=== PATIENT | female | born 1935 | race Caucasian/White ===

== ENCOUNTER 2022-03-28 18:46 | Inpatient (IN) | payer MEDICARE, MEDICAID ==
[~2022-03-28] VITALS: Ht 149.9 cm; Wt 47.6 kg
[~2022-03-28 18:46] MED LIST: GLYBURIDE; INSULIN; METFORMIN
[2022-03-28] MEDS ORDERED: KETOROLAC 30MG/ML VIAL IV STA (23:54)
[2022-03-28] MEDS ORDERED: ACETAMINOPHEN 325MG TABLET PO STA (23:54)
[2022-03-29] MEDS ORDERED: VANCOMYCIN 1G PREMIX 200 ML IV ONE
[2022-03-29] MEDS ORDERED: PIPERACILLIN/TAZ 3.375G PREMIX 50 ML IV ONE
[2022-03-29 00:23] LABS: BASOPHILS % 1.1 % (0.0-2.0); EOSINOPHILS % 6.4 % (0.0-5.0); HEMATOCRIT. 34.1 % (36.0-48.0); HEMOGLOBIN. 11.1 g/dL (12.0-16.0); LYMPHOCYTES % 42.8 % (20.0-50.0); MEAN CORPUSCULAR HEMOGLOBIN 26.6 pg (28.0-32.0); MEAN CORPUSCULAR VOLUME 81.7 fL (81.0-99.0); MEAN PLATELET VOLUME 8.9 fl (7.4-10.4); MONOCYTES % 10.7 % (2.0-8.0); PLATELET 308 x1000/uL (130-400); RED BLOOD CELL COUNT 4.18 mill/uL (4.2-5.4); RED CELL DISTRIBUTION WIDTH 16.1 % (11.6-14.6)
[2022-03-29 00:28] LABS: CHLORIDE 104 mEq/L (98-107)
[2022-03-29 01:26] LABS: CLARITY URINE CLOUDY (CLEAR); COLOR URINE YELLOW (YELLOW); KETONES URINE TRACE (NEGATIVE); LEUKOCYTE ESTERASE URINE 2+ (NEGATIVE); NITRITE URINE NEGATIVE (NEGATIVE); OCCULT BLOOD URINE NEGATIVE (NEGATIVE); PROTEIN URINE 3+ (NEGATIVE); SPECIFIC GRAVITY URINE 1.017 (1.005-1.030); UROBILINOGEN URINE 0.2 E.U./dL (0.2-1.0)
[2022-03-29] MEDS ORDERED: HYDROCODONE/ACETAMINOPHEN 5/325MG TABLET PO PRN (15:00)
[2022-03-29] MEDS ORDERED: ONDANSETRON HCL 4MG/2ML INJ IV PRN (15:00)
[2022-03-29] MEDS ORDERED: ACETAMINOPHEN 325MG TABLET PO PRN (15:00)
[2022-03-29] MEDS ORDERED: DOCUSATE SODIUM 100MG CAPSULE PO PRN (15:00)
[2022-03-29] MEDS ORDERED: LORAZEPAM 0.5MG TABLET PO PRN (15:00)
[2022-03-29] MEDS ORDERED: IPRATROPIUM/ALBUTEROL 0.5-3(2.5)MG/3ML NEB HHN PRN (15:00)
[2022-03-29] MEDS ORDERED: PIPERACILLIN/TAZ 3.375G PREMIX 50 ML IV NR (15:15)
[2022-03-29] MEDS ORDERED: NALOXONE HCL 0.4MG/ML VIAL IV PRN (15:15)
[2022-03-29] MEDS: CLONIDINE 0.1MG TABLET PO PRN (15:35)
[2022-03-29] MEDS ORDERED: VANCOMYCIN 500MG PREMIX 100 ML IV SCH (18:00)
[2022-03-29] MEDS: VANCOMYCIN 500MG PREMIX 100 ML IV SCH (23:16)
[2022-03-30] VITALS (8 sets, daily range): BP systolic 114–172; BP diastolic 39–65
[2022-03-30] MEDS ORDERED: DEXTROSE 50% WATER 50ML SYRINGE IV PRN (00:30)
[2022-03-30] MEDS: BLOOD SUGAR DIAGNOSTIC STRIP TEST SCH ×4 (05:40→21:26)
[2022-03-30] MEDS ORDERED: PIPERACILLIN/TAZOBACTAM 3.375 G in DEXTROSE 5% WATER 50 ML IV SCH (06:00)
[2022-03-30] MEDS: INSULIN LISPRO 100 UNITS/ML SUBCUT SCH ×4 (06:17→21:00)
[2022-03-30 07:32] LABS: BASOPHILS % 0.8 % (0.0-2.0); EOSINOPHILS % 5.8 % (0.0-5.0); HEMATOCRIT. 32.4 % (36.0-48.0); HEMOGLOBIN. 10.8 g/dL (12.0-16.0); LYMPHOCYTES % 35.6 % (20.0-50.0); MEAN CORPUSCULAR HEMOGLOBIN 26.7 pg (28.0-32.0); MEAN CORPUSCULAR VOLUME 80.3 fL (81.0-99.0); MEAN PLATELET VOLUME 9.1 fl (7.4-10.4); MONOCYTES % 6.4 % (2.0-8.0); NEUTROPHILS % 51.4 % (40.0-76.0); PLATELET 280 x1000/uL (130-400); RED BLOOD CELL COUNT 4.04 mill/uL (4.2-5.4); RED CELL DISTRIBUTION WIDTH 15.6 % (11.6-14.6)
[2022-03-30] MEDS ORDERED: HEPARIN 25,000 UNITS PREMIX 250 ML IV SCH ×2 (13:30→18:15)
[2022-03-30] MEDS: PIPERACILLIN/TAZOBACTAM 3.375 G in DEXTROSE 5% WATER 50 ML IV SCH ×2 (15:29→22:14)
[2022-03-30] MEDS: VANCOMYCIN 500MG PREMIX 100 ML IV SCH (17:00)
[2022-03-30 17:29] LABS: PARTIAL THROMBOPLASTIN TIME 27.2 sec (23.4-31.0); PROTHROMBIN TIME 10.7 sec (9.6-11.0)
[2022-03-30] MEDS ORDERED: HEPARIN 80 UNITS/KG BOLUS IV NR (18:00)
[2022-03-31] VITALS: BP 184/71
[2022-03-31] MEDS ORDERED: HEPARIN BOLUS PRN aPTT 37-44 IV
[2022-03-31] MEDS ORDERED: HEPARIN BOLUS PRN aPTT <36 IV
[2022-03-31] MEDS: ACETAMINOPHEN 325MG TABLET PO PRN (00:15)
[2022-03-31 04:00] VITALS: BP_SYST 149; BP_SYST 170; BP_DIAS 58; BP_DIAS 60
[2022-03-31] MEDS: PIPERACILLIN/TAZOBACTAM 3.375 G in DEXTROSE 5% WATER 50 ML IV SCH ×3 (05:36→21:55)
[2022-03-31] MEDS: BLOOD SUGAR DIAGNOSTIC STRIP TEST SCH ×4 (06:06→21:52)
[2022-03-31] MEDS: INSULIN LISPRO 100 UNITS/ML SUBCUT SCH ×4 (06:06→21:00)
[2022-03-31 08:00] VITALS: BP_SYST 156; BP_SYST 177; BP_DIAS 59; BP_DIAS 66
[2022-03-31 08:00] LABS: BASOPHILS % 1.2 % (0.0-2.0); EOSINOPHILS % 3.9 % (0.0-5.0); LYMPHOCYTES % 37.4 % (20.0-50.0); MEAN CORPUSCULAR HEMOGLOBIN 26.7 pg (28.0-32.0); MEAN CORPUSCULAR VOLUME 80.4 fL (81.0-99.0); MEAN PLATELET VOLUME 9.8 fl (7.4-10.4); MONOCYTES % 6.9 % (2.0-8.0); NEUTROPHILS % 50.6 % (40.0-76.0); PLATELET 307 x1000/uL (130-400); RED CELL DISTRIBUTION WIDTH 15.4 % (11.6-14.6)
[2022-03-31] MEDS: CLONIDINE 0.1MG TABLET PO PRN (09:18)
[2022-03-31 12:00] VITALS: BP 156/59
[2022-03-31] MEDS: AMLODIPINE 10MG TABLET PO SCH (12:58)
[2022-03-31] MEDS ORDERED: VANCOMYCIN 500MG PREMIX 100 ML IV SCH (13:00)
[2022-03-31 16:00] VITALS: BP 158/70
[2022-03-31 20:00] VITALS: BP_SYST 120; BP_SYST 142; BP_DIAS 56; BP_DIAS 90
[2022-04-01] VITALS (7 sets, daily range): BP systolic 126–174; BP diastolic 45–88
[2022-04-01] MEDS: CLONIDINE 0.1MG TABLET PO PRN (00:38)
[2022-04-01] MEDS: PIPERACILLIN/TAZOBACTAM 3.375 G in DEXTROSE 5% WATER 50 ML IV SCH ×3 (05:38→22:09)
[2022-04-01] MEDS: BLOOD SUGAR DIAGNOSTIC STRIP TEST SCH ×4 (05:53→21:09)
[2022-04-01] MEDS: INSULIN LISPRO 100 UNITS/ML SUBCUT SCH ×4 (05:53→21:05)
[2022-04-01 08:39] LABS: BASOPHILS % 1.3 % (0.0-2.0); HEMOGLOBIN. 10.7 g/dL (12.0-16.0); LYMPHOCYTES % 32.7 % (20.0-50.0); MEAN CORPUSCULAR HEMOGLOBIN 26.7 pg (28.0-32.0); MEAN CORPUSCULAR VOLUME 80.1 fL (81.0-99.0); MEAN PLATELET VOLUME 9.5 fl (7.4-10.4); MONOCYTES % 6.9 % (2.0-8.0); NEUTROPHILS % 56.1 % (40.0-76.0); PLATELET 320 x1000/uL (130-400); RED BLOOD CELL COUNT 3.99 mill/uL (4.2-5.4)
[2022-04-01] MEDS ORDERED: IOHEXOL-350 100 ML BOTTLE ONE (11:12)
[2022-04-01] MEDS: AMLODIPINE 10MG TABLET PO SCH (13:04)
[2022-04-01] MEDS: ENOXAPARIN 60MG/0.6ML SYR SUBCUT SCH (21:09)
[2022-04-01] MEDS: ATORVASTATIN CALCIUM 10MG TABLET PO SCH (21:10)
[2022-04-02] VITALS: BP 110/51
[2022-04-02 04:00] VITALS: BP 122/49
[2022-04-02 05:38] LABS: BASOPHILS % 1.4 % (0.0-2.0); EOSINOPHILS % 3.6 % (0.0-5.0); HEMATOCRIT. 32.1 % (36.0-48.0); HEMOGLOBIN. 10.7 g/dL (12.0-16.0); MEAN CORPUSCULAR HEMOGLOBIN 26.5 pg (28.0-32.0); MEAN CORPUSCULAR VOLUME 79.7 fL (81.0-99.0); MEAN PLATELET VOLUME 9.5 fl (7.4-10.4); MONOCYTES % 8.9 % (2.0-8.0); NEUTROPHILS % 52.1 % (40.0-76.0); PLATELET 318 x1000/uL (130-400); RED BLOOD CELL COUNT 4.03 mill/uL (4.2-5.4); RED CELL DISTRIBUTION WIDTH 15.6 % (11.6-14.6)
[2022-04-02] MEDS: PIPERACILLIN/TAZOBACTAM 3.375 G in DEXTROSE 5% WATER 50 ML IV SCH ×2 (06:09→22:35)
[2022-04-02] MEDS: BLOOD SUGAR DIAGNOSTIC STRIP TEST SCH ×4 (07:20→21:00)
[2022-04-02] MEDS: INSULIN LISPRO 100 UNITS/ML SUBCUT SCH ×4 (07:50→21:00)
[2022-04-02 08:00] VITALS: BP 123/45
[2022-04-02] MEDS: AMLODIPINE 10MG TABLET PO SCH (09:00)
[2022-04-02] MEDS: ASPIRIN 81MG EC TABLET PO SCH (10:34)
[2022-04-02 12:00] VITALS: BP 153/61
[2022-04-02 16:00] VITALS: BP 163/57
[2022-04-02 20:00] VITALS: BP 143/93
[2022-04-02] MEDS: ATORVASTATIN CALCIUM 10MG TABLET PO SCH (22:17)
[2022-04-02] MEDS: ACETAMINOPHEN 325MG TABLET PO PRN (22:17)
[2022-04-02] MEDS: ENOXAPARIN 60MG/0.6ML SYR SUBCUT SCH (22:18)
[2022-04-03] VITALS: BP_SYST 123; BP_DIAS 52; BP_DIAS 53
[2022-04-03] MEDS: INSULIN LISPRO 100 UNITS/ML SUBCUT SCH ×3 (06:25→20:22)
[2022-04-03 06:35] LABS: EOSINOPHILS % 3.8 % (0.0-5.0); LYMPHOCYTES % 33.1 % (20.0-50.0); MEAN CORPUSCULAR HEMOGLOBIN 26.5 pg (28.0-32.0); MEAN CORPUSCULAR VOLUME 79.2 fL (81.0-99.0); MEAN PLATELET VOLUME 9.3 fl (7.4-10.4); MONOCYTES % 9.3 % (2.0-8.0); NEUTROPHILS % 52.8 % (40.0-76.0); PLATELET 327 x1000/uL (130-400); RED BLOOD CELL COUNT 4.16 mill/uL (4.2-5.4); RED CELL DISTRIBUTION WIDTH 15.5 % (11.6-14.6)
[2022-04-03] MEDS: BLOOD SUGAR DIAGNOSTIC STRIP TEST SCH ×3 (07:20→20:16)
[2022-04-03 08:00] VITALS: BP 150/55
[2022-04-03] MEDS: AMLODIPINE 10MG TABLET PO SCH (09:42)
[2022-04-03] MEDS: ASPIRIN 81MG EC TABLET PO SCH (09:42)
[2022-04-03] MEDS: PIPERACILLIN/TAZOBACTAM 3.375 G in DEXTROSE 5% WATER 50 ML IV SCH (09:43)
[2022-04-03 12:00] VITALS: BP 155/60
[2022-04-03] MEDS: SODIUM CHLORIDE 0.9% 1,000 ML IV SCH (12:00)
[2022-04-03 16:00] VITALS: BP 147/55
[2022-04-03 20:00] VITALS: BP 134/54
[2022-04-03] MEDS: ATORVASTATIN CALCIUM 10MG TABLET PO SCH (20:07)
[2022-04-03] MEDS: ENOXAPARIN 60MG/0.6ML SYR SUBCUT SCH (20:08)
[2022-04-04] VITALS: BP 132/67
[2022-04-04 04:00] VITALS: BP 140/58
[2022-04-04] MEDS: SODIUM CHLORIDE 0.9% 1,000 ML IV SCH (05:31)
[2022-04-04] MEDS: BLOOD SUGAR DIAGNOSTIC STRIP TEST SCH ×4 (06:27→20:56)
[2022-04-04 07:26] LABS: BASOPHILS % 1.1 % (0.0-2.0); EOSINOPHILS % 6.5 % (0.0-5.0); HEMATOCRIT. 32.3 % (36.0-48.0); HEMOGLOBIN. 10.8 g/dL (12.0-16.0); LYMPHOCYTES % 26.7 % (20.0-50.0); MEAN CORPUSCULAR HEMOGLOBIN 26.6 pg (28.0-32.0); MEAN CORPUSCULAR VOLUME 79.3 fL (81.0-99.0); MEAN PLATELET VOLUME 9.2 fl (7.4-10.4); MONOCYTES % 7.6 % (2.0-8.0); NEUTROPHILS % 58.1 % (40.0-76.0); PLATELET 325 x1000/uL (130-400); RED BLOOD CELL COUNT 4.08 mill/uL (4.2-5.4); RED CELL DISTRIBUTION WIDTH 15.1 % (11.6-14.6)
[2022-04-04] MEDS: INSULIN LISPRO 100 UNITS/ML SUBCUT SCH ×4 (07:45→21:15)
[2022-04-04 08:00] VITALS: BP 135/65
[2022-04-04 08:08] LABS: PHOSPHORUS 5.2 mg/dL (2.5-4.9)
[2022-04-04] MEDS: ASPIRIN 81MG EC TABLET PO SCH (09:46)
[2022-04-04] MEDS: AMLODIPINE 10MG TABLET PO SCH (09:46)
[2022-04-04 12:00] VITALS: BP 133/70
[2022-04-04 20:00] VITALS: BP 147/58
[2022-04-04] MEDS: ATORVASTATIN CALCIUM 10MG TABLET PO SCH (21:03)
[2022-04-04] MEDS: ENOXAPARIN 60MG/0.6ML SYR SUBCUT SCH (21:03)
[2022-04-05] VITALS: BP 157/57
[2022-04-05] MEDS: SODIUM CHLORIDE 0.9% 1,000 ML IV SCH ×2 (00:17→22:00)
[2022-04-05 04:00] VITALS: BP 124/46
[2022-04-05 06:54] LABS: BASOPHILS % 1.1 % (0.0-2.0); HEMATOCRIT. 31.1 % (36.0-48.0); HEMOGLOBIN. 10.6 g/dL (12.0-16.0); LYMPHOCYTES % 34.9 % (20.0-50.0); MEAN CORPUSCULAR HEMOGLOBIN 26.6 pg (28.0-32.0); MEAN CORPUSCULAR VOLUME 78.5 fL (81.0-99.0); MEAN PLATELET VOLUME 9.2 fl (7.4-10.4); MONOCYTES % 6.7 % (2.0-8.0); NEUTROPHILS % 48.3 % (40.0-76.0); PLATELET 345 x1000/uL (130-400); RED BLOOD CELL COUNT 3.96 mill/uL (4.2-5.4)
[2022-04-05] MEDS: BLOOD SUGAR DIAGNOSTIC STRIP TEST SCH ×4 (07:20→20:42)
[2022-04-05] MEDS: INSULIN LISPRO 100 UNITS/ML SUBCUT SCH ×5 (07:44→20:52)
[2022-04-05 08:00] VITALS: BP 121/61
[2022-04-05] MEDS: ASPIRIN 81MG EC TABLET PO SCH (09:00)
[2022-04-05] MEDS: AMLODIPINE 10MG TABLET PO SCH (09:00)
[2022-04-05 10:32] LABS: PHOSPHORUS 4.6 mg/dL (2.5-4.9)
[2022-04-05 12:00] VITALS: BP 126/63
[2022-04-05 16:00] VITALS: BP 145/56
[2022-04-05] MEDS ORDERED: POTASSIUM CHLORIDE 20MEQ TABLET SR PO NR (18:30)
[2022-04-05] MEDS: ACETAMINOPHEN 325MG TABLET PO PRN (18:38)
[2022-04-05] MEDS ORDERED: ACETAMINOPHEN 650MG/20.3ML UDC PO PRN (18:45)
[2022-04-05 20:00] VITALS: BP 147/50
[2022-04-05] MEDS: ENOXAPARIN 60MG/0.6ML SYR SUBCUT SCH (20:42)
[2022-04-05] MEDS: ATORVASTATIN CALCIUM 10MG TABLET PO SCH (20:43)
[2022-04-06] VITALS: BP 120/51
[2022-04-06 04:00] VITALS: BP 130/50
[2022-04-06 07:17] LABS: BASOPHILS % 1.7 % (0.0-2.0); EOSINOPHILS % 10.7 % (0.0-5.0); HEMATOCRIT. 32.5 % (36.0-48.0); HEMOGLOBIN. 10.8 g/dL (12.0-16.0); LYMPHOCYTES % 36.8 % (20.0-50.0); MEAN CORPUSCULAR HEMOGLOBIN 26.3 pg (28.0-32.0); MEAN CORPUSCULAR VOLUME 79.2 fL (81.0-99.0); MEAN PLATELET VOLUME 8.9 fl (7.4-10.4); MONOCYTES % 6.5 % (2.0-8.0); NEUTROPHILS % 44.3 % (40.0-76.0); PLATELET 366 x1000/uL (130-400); RED CELL DISTRIBUTION WIDTH 15.2 % (11.6-14.6)
[2022-04-06] MEDS: BLOOD SUGAR DIAGNOSTIC STRIP TEST SCH ×2 (07:20→12:20)
[2022-04-06] MEDS: INSULIN LISPRO 100 UNITS/ML SUBCUT SCH ×2 (07:50→12:50)
[2022-04-06 08:00] VITALS: BP 136/53
[2022-04-06 08:07] LABS: PHOSPHORUS 3.5 mg/dL (2.5-4.9)
[2022-04-06] MEDS: AMLODIPINE 10MG TABLET PO SCH (09:20)
[2022-04-06] MEDS: ASPIRIN 81MG EC TABLET PO SCH (09:20)
[2022-04-06] MEDS ORDERED: ATOR10TA PO (10:02)
[2022-04-06] MEDS ORDERED: ASPI-1406 PO (10:02)
[2022-04-06] MEDS ORDERED: AMLO10TA80 PO (10:02)
[2022-04-06 12:00] VITALS: BP 114/54
[2022-04-06] MEDS: SODIUM CHLORIDE 0.9% 1,000 ML IV SCH (13:32)
[2022-04-06 13:33] VITALS: BP 114/54
== END 2022-04-06 14:18 | disposition home health service (06) | DRG 264 ==
LOC: ER 18:46 → EDBEDREQTM 03-29 01:14 → EDBEDREQ 03-29 01:14 → ENRESERV 03-29 22:18 → 7EST 03-29 23:49 → 6EST 04-01 20:34
PROVIDERS: ADMIT Internal Medicine; ATTEND Internal Medicine
PROC: 0JBR0ZZ Excision of Left Foot Subcutaneous Tissue and Fascia, Open Approach (ICD-10-PCS; principal; 2022-03-29)
DX: E11.52 Type 2 diabetes mellitus with diabetic peripheral angiopathy with gangrene (principal); E43 Unspecified severe protein-calorie malnutrition; L03.116 Cellulitis of left lower limb; N39.0 Urinary tract infection, site not specified; N17.9 Acute kidney failure, unspecified; E11.621 Type 2 diabetes mellitus with foot ulcer; D72.821 Monocytosis (symptomatic); D64.9 Anemia, unspecified; E11.628 Type 2 diabetes mellitus with other skin complications; Z20.822 Contact with and (suspected) exposure to COVID-19; E11.65 Type 2 diabetes mellitus with hyperglycemia; E78.00 Pure hypercholesterolemia, unspecified; I10 Essential (primary) hypertension; L97.529 Non-pressure chronic ulcer of other part of left foot with unspecified severity; I08.3 Combined rheumatic disorders of mitral, aortic and tricuspid valves; F17.200 Nicotine dependence, unspecified, uncomplicated; B96.20 Unspecified Escherichia coli [E. coli] as the cause of diseases classified elsewhere; E88.09 Other disorders of plasma-protein metabolism, not elsewhere classified; E78.5 Hyperlipidemia, unspecified; F03.90 Unspecified dementia, unspecified severity, without behavioral disturbance, psychotic disturbance, mood disturbance, and anxiety; Z68.21 Body mass index [BMI] 21.0-21.9, adult; Z79.899 Other long term (current) drug therapy; Z79.4 Long term (current) use of insulin; Z79.84 Long term (current) use of oral hypoglycemic drugs; Z79.82 Long term (current) use of aspirin; Z83.3 Family history of diabetes mellitus; Z82.49 Family history of ischemic heart disease and other diseases of the circulatory system
CPT/HCPCS: 36415; 71045; 73620; 75635; 76770; 80048; 80053; 80061; 80202; 81003; 82962; 83036; 83605; 83735; 84100; 84145; 84484; 85025; 85651; 87070; 87077; 87186; 87426; 93005; 93306; 93923; 99285; J1644; J1650; J1815; J1885; J2543; J3370; J7030; J7060; Q9967; A4315

== ENCOUNTER 2022-04-30 06:49 | Inpatient (IN) | payer MEDICARE, MEDICAID ==
[~2022-04-30] VITALS: Ht 137.2 cm; Wt 51.9 kg
[2022-04-30] VITALS (20 sets, daily range): BP systolic 104–159; BP diastolic 54–110
[~2022-04-30 06:49] MED LIST changes: +AMLO10TA80 PO; +ASPI-1406 PO; +ATOR10TA PO; -GLYBURIDE; -INSULIN; -METFORMIN
[2022-04-30 08:23] LABS: EOSINOPHILS % 4.5 % (0.0-5.0); HEMATOCRIT. 31.9 % (36.0-48.0); HEMOGLOBIN. 10.6 g/dL (12.0-16.0); LYMPHOCYTES % 26.1 % (20.0-50.0); MEAN CORPUSCULAR HEMOGLOBIN 26.6 pg (28.0-32.0); MONOCYTES % 6.5 % (2.0-8.0); NEUTROPHILS % 61.9 % (40.0-76.0); PLATELET 372 x1000/uL (130-400); RED BLOOD CELL COUNT 3.99 mill/uL (4.2-5.4); RED CELL DISTRIBUTION WIDTH 15.4 % (11.6-14.6)
[2022-04-30 08:34] LABS: PARTIAL THROMBOPLASTIN TIME 29.6 sec (23.4-31.0); PROTHROMBIN TIME 10.7 sec (9.6-11.0)
[2022-04-30] MEDS ORDERED: HYDROCODONE/ACETAMINOPHEN 5/325MG TABLET PO PRN ×2 (08:45→14:30)
[2022-04-30] MEDS ORDERED: HEPARIN 1000 UNITS/ML 10ML ONE (08:48)
[2022-04-30] MEDS ORDERED: LIDOCAINE HCL 1% 50ML VIAL (10MG/ML) ONE (08:49)
[2022-04-30] MEDS ORDERED: IODIXANOL 320MG/ML 100 ML BOTTLE IV ONE ×2 (08:51→10:20)
[2022-04-30] MEDS ORDERED: MULT-1146 MT (08:58)
[2022-04-30] MEDS ORDERED: METO-539 MT (08:58)
[2022-04-30] MEDS ORDERED: OMEG100017 PO (08:58)
[2022-04-30] MEDS ORDERED: NALOXONE HCL 0.4MG/ML VIAL IV PRN (09:00)
[2022-04-30] MEDS ORDERED: MIDAZOLAM HCL 5 MG/5 ML VIAL ONE (09:10)
[2022-04-30] MEDS ORDERED: ONDANSETRON HCL 4MG/2ML INJ ONE (09:30)
[2022-04-30] MEDS ORDERED: EPHEDRINE SULFATE 50MG/ML VIAL ONE (09:30)
[2022-04-30] MEDS ORDERED: FENTANYL CITRATE/PF 50MCG/ML 2ML VIAL ONE (10:00)
[2022-04-30] MEDS ORDERED: PROPOFOL 200MG/20ML VIAL IV ONE (10:21)
[2022-04-30] MEDS ORDERED: GLYCOPYRROLATE 0.2 MG/ML 2ML VIAL ONE (10:22)
[2022-04-30] MEDS ORDERED: CLOPIDOGREL 75MG TABLET ONE (11:38)
[2022-04-30] MEDS: CLOPIDOGREL 75MG TABLET PO SCH (11:45)
[2022-04-30] MEDS ORDERED: HYDRALAZINE 20MG/ML VIAL IV NR (12:30)
[2022-04-30] MEDS ORDERED: LINA5TAB PO (14:30)
[2022-04-30] MEDS ORDERED: ACETAMINOPHEN 325MG TABLET PO PRN (14:30)
[2022-04-30] MEDS ORDERED: DAPA10TA PO (14:30)
[2022-04-30] MEDS ORDERED: ONDANSETRON HCL 4MG/2ML INJ IV PRN (14:30)
[2022-04-30] MEDS: AMLODIPINE 10MG TABLET PO SCH (15:02)
[2022-04-30] MEDS: SODIUM CHLORIDE 0.9% 1,000 ML IV SCH (15:02)
[2022-04-30] MEDS ORDERED: DEXTROSE 50% WATER 50ML SYRINGE IV PRN (16:45)
[2022-04-30] MEDS: BLOOD SUGAR DIAGNOSTIC STRIP TEST SCH ×2 (16:50→21:09)
[2022-04-30] MEDS: INSULIN LISPRO 100 UNITS/ML SUBCUT SCH ×2 (17:20→21:00)
[2022-04-30] MEDS ORDERED: ATORVASTATIN CALCIUM 10MG TABLET PO SCH (21:00)
[2022-04-30] MEDS: METOPROLOL TARTRATE 50MG TABLET PO SCH (21:00)
[2022-05-01] MEDS: SODIUM CHLORIDE 0.9% 1,000 ML IV SCH (03:17)
[2022-05-01 04:39] VITALS: BP 119/89
[2022-05-01] MEDS: BLOOD SUGAR DIAGNOSTIC STRIP TEST SCH (06:21)
[2022-05-01 06:54] LABS: BASOPHILS % 0.7 % (0.0-2.0); EOSINOPHILS % 1.9 % (0.0-5.0); HEMATOCRIT. 29.7 % (36.0-48.0); LYMPHOCYTES % 18.5 % (20.0-50.0); MEAN CORPUSCULAR HEMOGLOBIN 26.8 pg (28.0-32.0); MEAN CORPUSCULAR VOLUME 80.1 fL (81.0-99.0); MEAN PLATELET VOLUME 9.2 fl (7.4-10.4); MONOCYTES % 5.9 % (2.0-8.0); PLATELET 299 x1000/uL (130-400); RED BLOOD CELL COUNT 3.72 mill/uL (4.2-5.4); RED CELL DISTRIBUTION WIDTH 14.8 % (11.6-14.6)
[2022-05-01] MEDS: INSULIN LISPRO 100 UNITS/ML SUBCUT SCH (07:20)
[2022-05-01 08:00] VITALS: BP 132/79
[2022-05-01] MEDS ORDERED: ASPIRIN 81MG EC TABLET PO SCH (09:00)
[2022-05-01] MEDS: METOPROLOL TARTRATE 50MG TABLET PO SCH (09:16)
[2022-05-01] MEDS: CLOPIDOGREL 75MG TABLET PO SCH (09:16)
[2022-05-01] MEDS: AMLODIPINE 10MG TABLET PO SCH (09:16)
[2022-05-01 12:00] VITALS: BP 123/53
[2022-05-01 12:03] VITALS: BP 119/89
== END 2022-05-01 12:35 | disposition home or self-care (01) | DRG 254 ==
LOC: CCL 06:49 → 3WST 14:15
PROVIDERS: ADMIT Internal Medicine; ATTEND Internal Medicine
PROC: B41G1ZZ Fluoroscopy of Left Lower Extremity Arteries using Low Osmolar Contrast (ICD-10-PCS; principal; 2022-04-30)
PROC: 047L3D1 Dilation of Left Femoral Artery with Intraluminal Device, using Drug-Coated Balloon, Percutaneous Approach (ICD-10-PCS; 2022-04-30)
PROC: 047N3D1 Dilation of Left Popliteal Artery with Intraluminal Device, using Drug-Coated Balloon, Percutaneous Approach (ICD-10-PCS; 2022-04-30)
PROC: 047L3ZZ Dilation of Left Femoral Artery, Percutaneous Approach (ICD-10-PCS; 2022-04-30)
PROC: 047N3ZZ Dilation of Left Popliteal Artery, Percutaneous Approach (ICD-10-PCS; 2022-04-30)
PROC: 047U3ZZ Dilation of Left Peroneal Artery, Percutaneous Approach (ICD-10-PCS; 2022-04-30)
PROC: 047S3ZZ Dilation of Left Posterior Tibial Artery, Percutaneous Approach (ICD-10-PCS; 2022-04-30)
DX: I70.292 Other atherosclerosis of native arteries of extremities, left leg (principal); L97.529 Non-pressure chronic ulcer of other part of left foot with unspecified severity; Z20.822 Contact with and (suspected) exposure to COVID-19
CPT/HCPCS: 36415; 37226; 37228; 75710; 80048; 82962; 83036; 85025; 87426; 93005; C1714; C1725; C1760; C1769; C1876; C1887; C1893; C1894; C2623; C9803; J0360; J1644; J2250; J2405; J2704; J3010; J3490; J7030; Q9967